=== PATIENT | male | born 1965 | race Caucasian/White ===

== ENCOUNTER 2024-04-20 09:11 | Inpatient (IN) | payer MEDICAID ==
[~2024-04-20] VITALS: Ht 175.3 cm; Wt 59.9 kg
[2024-04-20 09:19] VITALS: BP_SYST 177; PULSE 85; RESP 18; TEMP 98.3; O2SAT 98
[2024-04-20] MEDS ORDERED: IOHEXOL 350 mgI/mL, 150 ML INFUS..BTL IV ONE (09:25)
[2024-04-20 09:36] LABS: BASOPHILS # (AUTO) 0.1 K/uL (0.0-0.2); BASOPHILS % (AUTO) 1.1 % (0.0-2.0); EOSINOPHILS # (AUTO) 0.2 K/uL (0.0-0.4); EOSINOPHILS % (AUTO) 1.4 % (0.0-4.0); LYMPHOCYTES % (AUTO) 7.5 % (20.5-51.5); MEAN CORPUSCULAR HEMOGLOBIN 29 pg (27-31); MEAN CORPUSCULAR HGB CONC 33 % (32-36); MEAN CORPUSCULAR VOLUME 90 fL (79.0-98.0); MONOCYTES # (AUTO) 0.5 K/uL (0.0-1.0); MONOCYTES % (AUTO) 3.6 % (1.7-9.3); NEUTROPHILS % (AUTO) 86.4 % (40.0-70.0); PLATELET COUNT (AUTO) 198 K/uL (130-430); RED BLOOD CELL COUNT(AUTO) 7.71 MIL/uL (4.2-6.2); WHITE BLOOD COUNT (AUTO) 12.7 K/uL (4.8-10.8)
[2024-04-20 09:44] LABS: HEMOGLOBIN 22.5 g/dL (14.0-18.0)
[2024-04-20 09:46] LABS: HEMATOCRIT 69.4 % (36-54)
[2024-04-20] MEDS: ASPIRIN 81 MG TAB.CHEW PO ONE (09:50)
[2024-04-20 09:53] LABS: INR 1.5 (0.80-1.20); PROTHROMBIN TIME 15.3 SECS (9.5-12.5)
[2024-04-20 09:56] LABS: ALANINE AMINOTRANSFERASE 37 U/L (12-78); ALBUMIN 4.1 g/dL (3.4-4.8); ANION GAP 7 (5-15); ASPARTATE AMINOTRANSFERASE 21 U/L (10-37); BILIRUBIN,DIRECT 0.2 mg/dL (0.0-0.3); CALCIUM 9.4 mg/dL (8.4-11.0); CARBON DIOXIDE 31 mmol/L (23-29); CHLORIDE 103 mmol/L (98-107); CREATININE 1.21 mg/dL (0.55-1.30); GFR AFRICAN AMERICAN 79 mL/min (>90); GLUCOSE 97 mg/dL (74-106); POTASSIUM 4.1 mmol/L (3.5-5.1); SODIUM SERUM 141 mmol/L (136-145); TOTAL BILIRUBIN 0.9 mg/dL (0.0-1.0); TOTAL PROTEIN, SERUM 7.3 g/dL (6.4-8.3); UREA NITROGEN, BLOOD 15 mg/dL (8-21)
[2024-04-20] MEDS ORDERED: ASPIRIN 81 MG TAB.CHEW ONE (09:56)
[2024-04-20 09:57] LABS: GFR NON AFRICAN-AMERICAN 66 mL/min (>90)
[2024-04-20 10:07] LABS: BASOPHILS # (AUTO) 0.1 K/uL (0.0-0.2); BASOPHILS % (AUTO) 0.8 % (0.0-2.0); EOSINOPHILS # (AUTO) 0.1 K/uL (0.0-0.4); MEAN CORPUSCULAR HEMOGLOBIN 29 pg (27-31); MEAN CORPUSCULAR HGB CONC 33 % (32-36); MEAN CORPUSCULAR VOLUME 89 fL (79.0-98.0); MONOCYTES # (AUTO) 0.5 K/uL (0.0-1.0); MONOCYTES % (AUTO) 4.3 % (1.7-9.3); NEUTROPHILS # (AUTO) 10.8 K/uL (1.8-7.7); NEUTROPHILS % (AUTO) 85.9 % (40.0-70.0); PLATELET COUNT (AUTO) 192 K/uL (130-430); RED BLOOD CELL COUNT(AUTO) 7.84 MIL/uL (4.2-6.2); RED CELL DISTRIBUTION WIDTH 17.7 % (9.0-15.0); WHITE BLOOD COUNT (AUTO) 12.6 K/uL (4.8-10.8)
[2024-04-20 10:10] LABS: HEMOGLOBIN 22.8 g/dL (14.0-18.0)
[2024-04-20 10:11] LABS: HEMATOCRIT 69.7 % (36-54)
[2024-04-20] MEDS ORDERED: CLOPIDOGREL BISULFATE 75 MG TABLET ONE (12:04)
[2024-04-20] MEDS: CLOPIDOGREL BISULFATE 75 MG TABLET PO ONE (12:11)
[2024-04-20] MEDS: LR 1,000 ML IV SCH (12:34)
[2024-04-20] MEDS: hydrALAZINE HCL 20 MG/ML VIAL IVP PRN (12:34)
[2024-04-20 14:10] VITALS: BP_SYST 151; PULSE 58; RESP 17; TEMP 96.7; O2SAT 97
[2024-04-20 16:05] VITALS: BP_SYST 153; PULSE 56; RESP 16; TEMP 98; O2SAT 98
[2024-04-20 17:10] LABS: BASOPHILS # (AUTO) 0.1 K/uL (0.0-0.2); EOSINOPHILS # (AUTO) 0.2 K/uL (0.0-0.4); EOSINOPHILS % (AUTO) 1.4 % (0.0-4.0); LYMPHOCYTES # (AUTO) 1.4 K/uL (1.0-5.5); LYMPHOCYTES % (AUTO) 11.1 % (20.5-51.5); MEAN CORPUSCULAR HEMOGLOBIN 29 pg (27-31); MEAN CORPUSCULAR HGB CONC 33 % (32-36); MEAN CORPUSCULAR VOLUME 89 fL (79.0-98.0); MONOCYTES # (AUTO) 0.6 K/uL (0.0-1.0); MONOCYTES % (AUTO) 4.8 % (1.7-9.3); NEUTROPHILS # (AUTO) 10.1 K/uL (1.8-7.7); NEUTROPHILS % (AUTO) 81.7 % (40.0-70.0); RED BLOOD CELL COUNT(AUTO) 7.45 MIL/uL (4.2-6.2); RED CELL DISTRIBUTION WIDTH 17.1 % (9.0-15.0); WHITE BLOOD COUNT (AUTO) 12.3 K/uL (4.8-10.8)
[2024-04-20 17:26] LABS: HEMATOCRIT 65.9 % (36-54)
[2024-04-20 17:47] LABS: HEMOGLOBIN 21.8 g/dL (14.0-18.0)
[2024-04-20 18:16] LABS: ALBUMIN 3.8 g/dL (3.4-4.8); CALCIUM 9.1 mg/dL (8.4-11.0); CREATININE 1.12 mg/dL (0.55-1.30); PHOSPHORUS 2.4 mg/dL (2.7-4.5); POTASSIUM 4.1 mmol/L (3.5-5.1); TOTAL BILIRUBIN 0.8 mg/dL (0.0-1.0); TOTAL PROTEIN, SERUM 6.7 g/dL (6.4-8.3)
[2024-04-20 19:26] LABS: PLATELET COUNT (AUTO) 208 K/uL (130-430)
[2024-04-20 20:33] VITALS: BP_SYST 151; PULSE 60; RESP 20; TEMP 98.1; O2SAT 96
[2024-04-20 20:34] VITALS: O2SAT 96
[2024-04-21] VITALS (7 sets, daily range): BP systolic 126–165; PULSE 56–76; RESP 16–20; TEMP 97.5–99.3; O2SAT 96–99
[2024-04-21 02:58] LABS: BILIRUBIN,URINE NEGATIVE (NEGATIVE); CLARITY/URINE CLEAR (CLEAR); COLOR,URINE YELLOW (YELLOW); GLUCOSE,URINE NEGATIVE (NEGATIVE); KETONES,URINE NEGATIVE (NEGATIVE); LEUKOCYTE ESTERASE ,URINE NEGATIVE (NEGATIVE); NITRITE, URINE NEGATIVE (NEGATIVE); PROTEIN URINE NEGATIVE (NEGATIVE); UROBILINOGEN,URINE 0.2 (0.2-1.0)
[2024-04-21 03:13] LABS: BARBITURATE, URINE NEGATIVE (NEG <=200); BENZODIAZEPINE, URINE NEGATIVE (NEG <=150); CANNABINOID, URINE POSITIVE (NEG <=50); COCAINE, URINE NEGATIVE (NEG <=150); METHAMPHETAMINES SCREEN,URINE NEGATIVE (NEG <=500); OPIATE, URINE NEGATIVE (NEG <=100); PHENCYCLIDINE SCREEN,URINE NEGATIVE (NEG <=25); UR TRICYCLIC ANTIDEPRESSANTS NEGATIVE (NEG <=300); URINE AMPHETAMINE NEGATIVE (NEG <=500); URINE METHADONE NEGATIVE (NEG <=200); URINE OXYCODONE SCREEN NEGATIVE (NEG <=100)
[2024-04-21 03:29] LABS: BLOOD, URINE TRACE (NEGATIVE)
[2024-04-21 03:34] LABS: BACTERIA,URINE None Seen /HPF (None Seen); WBC,URINE 0-3 /HPF (0-3)
[2024-04-21 05:34] LABS: BASOPHILS # (AUTO) 0.1 K/uL (0.0-0.2); EOSINOPHILS # (AUTO) 0.3 K/uL (0.0-0.4); LYMPHOCYTES # (AUTO) 1.5 K/uL (1.0-5.5); MEAN CORPUSCULAR HEMOGLOBIN 29 pg (27-31); MEAN CORPUSCULAR HGB CONC 33 % (32-36); MEAN CORPUSCULAR VOLUME 89 fL (79.0-98.0); MONOCYTES # (AUTO) 0.4 K/uL (0.0-1.0); MONOCYTES % (AUTO) 3.2 % (1.7-9.3); NEUTROPHILS # (AUTO) 10.5 K/uL (1.8-7.7); NEUTROPHILS % (AUTO) 81.8 % (40.0-70.0); PLATELET COUNT (AUTO) 200 K/uL (130-430); RED BLOOD CELL COUNT(AUTO) 7.22 MIL/uL (4.2-6.2); RED CELL DISTRIBUTION WIDTH 17.3 % (9.0-15.0); RETICULOCYTE COUNT 0.6 % (0.5-1.5); WHITE BLOOD COUNT (AUTO) 12.8 K/uL (4.8-10.8)
[2024-04-21 05:51] LABS: HEMATOCRIT 64.4 % (36-54); HEMOGLOBIN 21.1 g/dL (14.0-18.0)
[2024-04-21 06:53] LABS: ALBUMIN 3.4 g/dL (3.4-4.8); CALCIUM 8.6 mg/dL (8.4-11.0); CREATININE 0.88 mg/dL (0.55-1.30); PHOSPHORUS 2.3 mg/dL (2.7-4.5); POTASSIUM 3.9 mmol/L (3.5-5.1); TOTAL BILIRUBIN 0.9 mg/dL (0.0-1.0)
[2024-04-21 07:53] LABS: CHOLESTEROL 152 mg/dL (<200); HDL CHOLESTEROL 42 mg/dL (>45); TRIGLYCERIDES 58 mg/dL (30-150)
[2024-04-21] MEDS: amLODIPine BESYLATE 5 MG TABLET PO ONE (10:46)
[2024-04-21] MEDS: ASPIRIN 81 MG TABLET(ECOTRIN) PO ONE (10:46)
[2024-04-21] MEDS: ATORVASTATIN 10 MG TABLET PO ONE (10:46)
[2024-04-21] MEDS: CLOPIDOGREL BISULFATE 75 MG TABLET PO ONE (12:38)
[2024-04-21] MEDS ORDERED: ALBUMIN HUMAN 5% 500 ML IV ONE (14:00)
[2024-04-21] MEDS: ALBUMIN HUMAN 5% IV ONE (16:22)
[2024-04-21] MEDS: CALCIUM GLUCONATE 1 GM in NS 100 ML IV ONE (16:23)
[2024-04-22 00:47] VITALS: BP_SYST 149; RESP 16; TEMP 98.2; O2SAT 97
[2024-04-22 07:05] LABS: BASOPHILS # (AUTO) 0.1 K/uL (0.0-0.2); BASOPHILS % (AUTO) 0.9 % (0.0-2.0); EOSINOPHILS # (AUTO) 0.2 K/uL (0.0-0.4); EOSINOPHILS % (AUTO) 1.9 % (0.0-4.0); HEMATOCRIT 58.3 % (36-54); HEMOGLOBIN 19.1 g/dL (14.0-18.0); LYMPHOCYTES # (AUTO) 1.4 K/uL (1.0-5.5); LYMPHOCYTES % (AUTO) 10.8 % (20.5-51.5); MEAN CORPUSCULAR HEMOGLOBIN 29 pg (27-31); MEAN CORPUSCULAR HGB CONC 33 % (32-36); MEAN CORPUSCULAR VOLUME 89 fL (79.0-98.0); MONOCYTES # (AUTO) 0.5 K/uL (0.0-1.0); MONOCYTES % (AUTO) 4.1 % (1.7-9.3); NEUTROPHILS # (AUTO) 10.5 K/uL (1.8-7.7); NEUTROPHILS % (AUTO) 82.3 % (40.0-70.0); PLATELET COUNT (AUTO) 218 K/uL (130-430); RED BLOOD CELL COUNT(AUTO) 6.58 MIL/uL (4.2-6.2); RED CELL DISTRIBUTION WIDTH 16.9 % (9.0-15.0); WHITE BLOOD COUNT (AUTO) 12.7 K/uL (4.8-10.8)
[2024-04-22 07:27] LABS: CALCIUM 9.2 mg/dL (8.4-11.0); CREATININE 0.94 mg/dL (0.55-1.30); POTASSIUM 3.8 mmol/L (3.5-5.1)
[2024-04-22 08:00] VITALS: BP_SYST 155; PULSE 64; TEMP 97.7; O2SAT 97
[2024-04-22] MEDS: CLOPIDOGREL BISULFATE 75 MG TABLET PO SCH (09:27)
[2024-04-22] MEDS: ATORVASTATIN 10 MG TABLET PO SCH (09:28)
[2024-04-22] MEDS: amLODIPine BESYLATE 5 MG TABLET PO SCH (09:28)
[2024-04-22] MEDS: ASPIRIN 81 MG TABLET(ECOTRIN) PO SCH (09:28)
[2024-04-22 11:43] VITALS: BP_SYST 120; PULSE 61; RESP 16; TEMP 98; O2SAT 97
[2024-04-22] MEDS ORDERED: ALBUMIN HUMAN 5% 500 ML IV ONE (13:30)
[2024-04-22] MEDS ORDERED: CALCIUM CHLORIDE 1 GM in NS 100 ML IV ONE (13:30)
== END 2024-04-22 14:20 | disposition left against medical advice (07) | DRG 694 ==
LOC: SED 09:11 → STU 11:42
PROVIDERS: ADMIT Internal Medicine; ATTEND Internal Medicine
PROC: B3251ZZ Computerized Tomography (CT Scan) of Bilateral Common Carotid Arteries using Low Osmolar Contrast (ICD-10-PCS; principal; 2024-04-20)
PROC: B32G1ZZ Computerized Tomography (CT Scan) of Bilateral Vertebral Arteries using Low Osmolar Contrast (ICD-10-PCS; 2024-04-20)
PROC: B32R1ZZ Computerized Tomography (CT Scan) of Intracranial Arteries using Low Osmolar Contrast (ICD-10-PCS; 2024-04-20)
PROC: B3281ZZ Computerized Tomography (CT Scan) of Bilateral Internal Carotid Arteries using Low Osmolar Contrast (ICD-10-PCS; 2024-04-20)
PROC: 6A550Z0 Pheresis of Erythrocytes, Single (ICD-10-PCS; 2024-04-22)
DX: D45 Polycythemia vera (principal); I63.9 Cerebral infarction, unspecified; F19.20 Other psychoactive substance dependence, uncomplicated; I16.0 Hypertensive urgency; Z53.29 Procedure and treatment not carried out because of patient's decision for other reasons; Z79.899 Other long term (current) drug therapy; Z88.8 Allergy status to other drugs, medicaments and biological substances; R29.703 NIHSS score 3
CPT/HCPCS: 36415; 70450; 70496; 70498; 70551; 71045; 76700; 80048; 80053; 80061; 80076; 80307; 81000; 81001; 81015; 82668; 83735; 83880; 84100; 84484; 85025; 85044; 85610; 93005; 93306; 97112-GP; 97116-GP; 99285; G0378; J0360; J0612; P9041; Q9967